=== PATIENT | male | born 1970 | race Caucasian/White ===

== ENCOUNTER 2025-09-06 11:09 | Inpatient (IN) ==
[2025-09-06 11:50] LABS: Basophils # (Auto) 0.01 K/mcL (0.00-0.30); Basophils % (Auto) 0.1 % (0.0-2.0); Eosinophils # (Auto) 0.03 K/mcL (0.00-0.70); Eosinophils % (Auto) 0.4 % (0.0-7.0); Hematocrit 47.0 % (40.1-51.0); Hemoglobin 15.4 g/dL (13.7-17.5); Lymphocytes # (Auto) 1.11 K/mcL (1.50-4.80); Lymphocytes % (Auto) 13.5 % (15.5-49.0); Mean Corpuscular HGB Conc 32.8 g/dL (31.0-36.0); Monocytes # (Auto) 0.92 K/mcL (0.10-0.90); Monocytes % (Auto) 11.2 % (1.0-12.0); Neutrophils % (Auto) 74.8 % (38.0-78.0); Platelet Count 266 K/mcL (140-440); RBC 5.09 M/mcL (4.63-6.08); WBC 8.2 K/mcL (4.5-11.0)
[2025-09-06 12:08] LABS: ALT/SGPT 37 U/L (<40); AST/SGOT 32 U/L (<40); Albumin 3.8 gm/dL (3.2-5.2); Albumin/Globulin Ratio 1.1 (1.0-2.3); Alkaline Phosphatase 72 U/L (39-117); Anion Gap 6.0 (8.0-16.0); Bilirubin,Total 0.4 mg/dL (0.1-1.0); Blood Urea Nitrogen 16 mg/dL (6-20); Calcium 9.0 mg/dL (8.6-10.4); Carbon Dioxide 28 mmol/L (22-30); Chloride 103 mmol/L (96-108); Globulin 3.4 gm/dL (2.2-3.7); Glucose 118 mg/dL (70-105); Potassium 4.8 mmol/L (3.3-5.1); Sodium 137 mmol/L (133-145)
[2025-09-06] MEDS: KETOROLAC 30 MG/ML VIAL IV ONE (13:11)
[2025-09-06] MEDS: PIPERACILLIN SODIUM/TAZOBACTAM 3.375 GM in DEXTROSE 5% IN WATER 50 ML IV ONE (13:26)
[2025-09-06 13:49] LABS: INR 1.0 (0.9-1.1); Prothrombin Time 14.2 sec (11.9-14.5)
[2025-09-06] MEDS: 0.9 % SODIUM CHLORIDE 1,000 ML IV ONE (14:00)
[2025-09-06] MEDS ORDERED: ROCURONIUM 10 MG/ML ML IV ONE (14:01)
[2025-09-06] MEDS ORDERED: PROPOFOL 200 MG/20 ML VIAL IV ONE (14:01)
[2025-09-06] MEDS ORDERED: SUCCINYLCHOLINE 200 MG/10 ML VIAL IV ONE (14:01)
[2025-09-06] MEDS ORDERED: BUPIVACAINE PF 0.5% 10 ML VIAL ONE (14:01)
[2025-09-06] MEDS ORDERED: BUPIVACAINE LIPOSOMAL 1.3% 10 ML VIAL IJ ONE (14:01)
[2025-09-06] MEDS ORDERED: MIDAZOLAM 2 MG/2 ML VIAL ONE (14:01)
[2025-09-06] MEDS ORDERED: ONDANSETRON 4 MG/2 ML VIAL ONE (14:02)
[2025-09-06] MEDS ORDERED: LIDOCAINE 2% PF 5 ML VIAL ONE (14:02)
[2025-09-06] MEDS ORDERED: GLYCOPYRROLATE 0.2 MG/ML VIAL IV ONE (14:02)
[2025-09-06] MEDS ORDERED: KETOROLAC 30 MG/ML VIAL ONE (14:02)
[2025-09-06] MEDS ORDERED: DEXAMETHASONE 10 MG/ML VIAL ONE (14:02)
[2025-09-06] MEDS ORDERED: TRANEXAMIC ACID 1,000 MG/10 ML VIAL ONE (14:02)
[2025-09-06] MEDS ORDERED: HYDROmorphone 0.5 MG/0.5 ML SYRINGE ONE (15:39)
[2025-09-06] MEDS ORDERED: fentaNYL 100 MCG/2 ML VIAL ONE (15:45)
[2025-09-06] MEDS ORDERED: LABETALOL HCL 20 MG/4 ML VIAL IV ONE (15:53)
[2025-09-06] MEDS ORDERED: SUGAMMADEX SODIUM 200 MG/2 ML VIAL IV ONE (16:11)
[2025-09-06] MEDS ORDERED: LACTATED RINGERS 250 ML IV PRN (16:13)
[2025-09-06] MEDS ORDERED: NALOXONE HCL 0.4 MG/ML VIAL IV PRN (16:13)
[2025-09-06] MEDS ORDERED: ONDANSETRON 4 MG/2 ML VIAL IV PRN ×2 (16:13→18:13)
[2025-09-06] MEDS ORDERED: IPRATROPIUM/ALBUTEROL 3 ML AMPUL.NEB NEB PRN (16:13)
[2025-09-06] MEDS ORDERED: HYDROmorphone 0.5 MG/0.5 ML SYRINGE IV PRN (16:13)
[2025-09-06] MEDS ORDERED: BENZOCAINE/MENTHOL 1 LOZENGE PO PRN (16:13)
[2025-09-06] MEDS: ACETAMINOPHEN 1,000 MG/100 ML BAG IV ONE (17:01)
[2025-09-06] MEDS: fentaNYL 100 MCG/2 ML VIAL IV PRN (17:31)
[2025-09-06] MEDS: METHOCARBAMOL 1,000 MG/10 ML VIAL IV PRN (17:32)
[2025-09-06] MEDS: 0.9 % SODIUM CHLORIDE 1,000 ML IV SCH (20:25)
[2025-09-06] MEDS: PIPERACILLIN SODIUM/TAZOBACTAM 3.375 GM in DEXTROSE 5% IN WATER 100 ML IV SCH (20:26)
[2025-09-06] MEDS: METOCLOPRAMIDE 10 MG/2 ML VIAL IV SCH (20:42)
[2025-09-06] MEDS: PYRIDOSTIGMINE BROMIDE 10 MG/2 ML AMPUL IV SCH (21:24)
[2025-09-06] MEDS: HYDROmorphone 0.5 MG/0.5 ML SYRINGE IV PRN (22:58)
[2025-09-07] MEDS: ACETAMINOPHEN 1,000 MG/100 ML BAG IV SCH (01:15)
[2025-09-07] MEDS: METHOCARBAMOL 1,000 MG/10 ML VIAL IV PRN (01:55)
[2025-09-07 08:53] LABS: Basophils # (Auto) 0 K/mcL (0.00-0.30); Basophils % (Auto) 0 % (0.0-2.0); Eosinophils # (Auto) 0 K/mcL (0.00-0.70); Eosinophils % (Auto) 0 % (0.0-7.0); Hematocrit 41.0 % (40.1-51.0); Hemoglobin 13.1 g/dL (13.7-17.5); Lymphocytes # (Auto) 1.15 K/mcL (1.50-4.80); Lymphocytes % (Auto) 10.7 % (15.5-49.0); Mean Corpuscular HGB Conc 32.0 g/dL (31.0-36.0); Monocytes # (Auto) 0.80 K/mcL (0.10-0.90); Monocytes % (Auto) 7.5 % (1.0-12.0); Neutrophils % (Auto) 81.7 % (38.0-78.0); Platelet Count 264 K/mcL (140-440); RBC 4.29 M/mcL (4.63-6.08); WBC 10.7 K/mcL (4.5-11.0)
[2025-09-07 09:13] LABS: ALT/SGPT 31 U/L (<40); AST/SGOT 29 U/L (<40); Albumin 3.1 gm/dL (3.2-5.2); Albumin/Globulin Ratio 1.1 (1.0-2.3); Alkaline Phosphatase 54 U/L (39-117); Anion Gap 7.0 (8.0-16.0); Bilirubin,Direct 0.2 mg/dL (<0.3); Bilirubin,Total 0.4 mg/dL (0.1-1.0); Blood Urea Nitrogen 20 mg/dL (6-20); Calcium 7.7 mg/dL (8.6-10.4); Carbon Dioxide 22 mmol/L (22-30); Chloride 104 mmol/L (96-108); Globulin 2.9 gm/dL (2.2-3.7); Glucose 125 mg/dL (70-105); Phosphorous 3.2 mg/dL (2.5-4.5); Potassium 5.3 mmol/L (3.3-5.1); Sodium 133 mmol/L (133-145); Triglycerides 80 mg/dL (<150); Uric Acid 4.7 mg/dL (2.5-8.0)
[2025-09-07] MEDS ORDERED: BENZOCAINE/MENTHOL 1 LOZENGE PO PRN (11:39)
[2025-09-07] MEDS: BENZOCAINE ONE 20% 1 SPRAY TOPICAL (12:23)
[2025-09-07 13:18] LABS: Bilirubin,Urine NEGATIVE (Negative); Color,Urine LT. YELLOW; Glucose,Urine (UA) NEGATIVE (Negative); Ketones,Urine NEGATIVE (Negative); Leukocyte Esterase,Urine NEGATIVE /uL (Negative); PH,Urine 6.0 (5.0-9.0); Protein,Urine NEGATIVE (Negative); Specific Gravity,Urine 1.020 (1.000-1.035); Urobilinogen,Urine 0.2 mg/dL
[2025-09-07] MEDS: LACTATED RINGERS 1,000 ML IV SCH (16:29)
[2025-09-07] MEDS: PANTOPRAZOLE 40 MG VIAL IV SCH (17:10)
[2025-09-08 06:18] LABS: Basophils # (Auto) 0.01 K/mcL (0.00-0.30); Basophils % (Auto) 0.1 % (0.0-2.0); Eosinophils # (Auto) 0.07 K/mcL (0.00-0.70); Eosinophils % (Auto) 0.9 % (0.0-7.0); Hematocrit 42.1 % (40.1-51.0); Hemoglobin 13.4 g/dL (13.7-17.5); Lymphocytes # (Auto) 1.62 K/mcL (1.50-4.80); Lymphocytes % (Auto) 21.2 % (15.5-49.0); Mean Corpuscular HGB Conc 31.8 g/dL (31.0-36.0); Monocytes # (Auto) 0.71 K/mcL (0.10-0.90); Monocytes % (Auto) 9.3 % (1.0-12.0); Neutrophils % (Auto) 68.5 % (38.0-78.0); Platelet Count 266 K/mcL (140-440); RBC 4.40 M/mcL (4.63-6.08); WBC 7.6 K/mcL (4.5-11.0)
[2025-09-08 06:39] LABS: ALT/SGPT 26 U/L (<40); AST/SGOT 36 U/L (<40); Albumin 3.1 gm/dL (3.2-5.2); Albumin/Globulin Ratio 1.0 (1.0-2.3); Alkaline Phosphatase 52 U/L (39-117); Anion Gap 7.0 (8.0-16.0); Bilirubin,Direct < 0.2 mg/dL (0-0.3); Bilirubin,Total 0.3 mg/dL (0.1-1.0); Blood Urea Nitrogen 17 mg/dL (6-20); Calcium 8.1 mg/dL (8.6-10.4); Carbon Dioxide 25 mmol/L (22-30); Chloride 106 mmol/L (96-108); Globulin 3.1 gm/dL (2.2-3.7); Glucose 93 mg/dL (70-105); Phosphorous 2.2 mg/dL (2.5-4.5); Potassium 4.3 mmol/L (3.3-5.1); Sodium 138 mmol/L (133-145); Triglycerides 148 mg/dL (<150); Uric Acid 4.3 mg/dL (2.5-8.0)
[2025-09-08] MEDS: POTASSIUM PHOSPHATE 40 MEQ in DEXTROSE 5% IN WATER 500 ML IV ONE (15:07)
[2025-09-08] MEDS: POLYETHYLENE GLYCOL 3350 17 GM PACKET PO SCH (15:07)
[2025-09-08] MEDS: MAGNESIUM HYDROXIDE 30 ML ORAL.SUSP PO SCH (16:11)
[2025-09-09] MEDS: POLYETHYLENE GLYCOL 3350 17 GM PACKET ONE (05:50)
[2025-09-09] MEDS: POLYETHYLENE GLYCOL 3350 17 GM PACKET PO SCH ×2 (07:12→12:36)
[2025-09-09 08:30] LABS: ALT/SGPT 25 U/L (<40); AST/SGOT 43 U/L (<40); Albumin 3.2 gm/dL (3.2-5.2); Albumin/Globulin Ratio 1.0 (1.0-2.3); Alkaline Phosphatase 52 U/L (39-117); Anion Gap 10.0 (8.0-16.0); Bilirubin,Direct < 0.2 mg/dL (0-0.3); Bilirubin,Total 0.3 mg/dL (0.1-1.0); Blood Urea Nitrogen 12 mg/dL (6-20); Calcium 8.4 mg/dL (8.6-10.4); Carbon Dioxide 23 mmol/L (22-30); Chloride 105 mmol/L (96-108); Globulin 3.1 gm/dL (2.2-3.7); Glucose 120 mg/dL (70-105); Phosphorous 2.2 mg/dL (2.5-4.5); Potassium 4.0 mmol/L (3.3-5.1); Sodium 138 mmol/L (133-145); Triglycerides 133 mg/dL (<150); Uric Acid 3.9 mg/dL (2.5-8.0)
[2025-09-09 09:08] LABS: Basophils # (Auto) 0.02 K/mcL (0.00-0.30); Basophils % (Auto) 0.3 % (0.0-2.0); Eosinophils # (Auto) 0.06 K/mcL (0.00-0.70); Eosinophils % (Auto) 0.8 % (0.0-7.0); Hematocrit 41.2 % (40.1-51.0); Hemoglobin 13.3 g/dL (13.7-17.5); Lymphocytes # (Auto) 1.42 K/mcL (1.50-4.80); Lymphocytes % (Auto) 18.5 % (15.5-49.0); Mean Corpuscular HGB Conc 32.3 g/dL (31.0-36.0); Monocytes # (Auto) 0.71 K/mcL (0.10-0.90); Monocytes % (Auto) 9.3 % (1.0-12.0); Neutrophils % (Auto) 71.0 % (38.0-78.0); Platelet Count 280 K/mcL (140-440); RBC 4.37 M/mcL (4.63-6.08); WBC 7.7 K/mcL (4.5-11.0)
[2025-09-09] MEDS: MAGNESIUM HYDROXIDE 30 ML ORAL.SUSP PO SCH (12:36)
[2025-09-09] MEDS: POTASSIUM PHOSPHATE 40 MEQ in DEXTROSE 5% IN WATER 500 ML IV SCH (15:05)
[2025-09-10 07:58] LABS: ALT/SGPT 57 U/L (<40); AST/SGOT 70 U/L (<40); Albumin 3.6 gm/dL (3.2-5.2); Albumin/Globulin Ratio 1.0 (1.0-2.3); Alkaline Phosphatase 62 U/L (39-117); Anion Gap 12.0 (8.0-16.0); Basophils # (Auto) 0.01 K/mcL (0.00-0.30); Basophils % (Auto) 0.1 % (0.0-2.0); Bilirubin,Direct < 0.2 mg/dL (0-0.3); Bilirubin,Total 0.3 mg/dL (0.1-1.0); Blood Urea Nitrogen 8 mg/dL (6-20); Calcium 9.0 mg/dL (8.6-10.4); Carbon Dioxide 25 mmol/L (22-30); Chloride 105 mmol/L (96-108); Eosinophils # (Auto) 0.09 K/mcL (0.00-0.70); Eosinophils % (Auto) 1.0 % (0.0-7.0); Globulin 3.5 gm/dL (2.2-3.7); Glucose 109 mg/dL (70-105); Hematocrit 45.0 % (40.1-51.0); Hemoglobin 14.7 g/dL (13.7-17.5); Lymphocytes # (Auto) 1.37 K/mcL (1.50-4.80); Lymphocytes % (Auto) 15.7 % (15.5-49.0); Mean Corpuscular HGB Conc 32.7 g/dL (31.0-36.0); Monocytes # (Auto) 0.83 K/mcL (0.10-0.90); Monocytes % (Auto) 9.5 % (1.0-12.0); Neutrophils % (Auto) 73.6 % (38.0-78.0); Phosphorous 3.2 mg/dL (2.5-4.5); Platelet Count 298 K/mcL (140-440); Potassium 4.1 mmol/L (3.3-5.1); RBC 4.83 M/mcL (4.63-6.08); Sodium 142 mmol/L (133-145); Triglycerides 187 mg/dL (<150); Uric Acid 3.8 mg/dL (2.5-8.0); WBC 8.7 K/mcL (4.5-11.0)
[2025-09-10 07:59] LABS: C-Reactive Protein 4.97 mg/dL (0.03-0.80)
[2025-09-10] MEDS ORDERED: IOPAMIDOL 100 ML BOTTLE IV ONE (08:55)
[2025-09-10] MEDS: hydrALAZINE 20 MG/ML VIAL IV ONE (17:13)
[2025-09-10] MEDS: 0.9 % SODIUM CHLORIDE 1,000 ML IV SCH (17:14)
[2025-09-12 06:50] LABS: Basophils # (Auto) 0.02 K/mcL (0.00-0.30); Basophils % (Auto) 0.2 % (0.0-2.0); Eosinophils # (Auto) 0.16 K/mcL (0.00-0.70); Eosinophils % (Auto) 1.8 % (0.0-7.0); Hematocrit 45.9 % (40.1-51.0); Hemoglobin 15.0 g/dL (13.7-17.5); Lymphocytes # (Auto) 1.69 K/mcL (1.50-4.80); Lymphocytes % (Auto) 19.3 % (15.5-49.0); Mean Corpuscular HGB Conc 32.7 g/dL (31.0-36.0); Monocytes # (Auto) 0.77 K/mcL (0.10-0.90); Monocytes % (Auto) 8.8 % (1.0-12.0); Neutrophils % (Auto) 69.7 % (38.0-78.0); Platelet Count 305 K/mcL (140-440); RBC 4.98 M/mcL (4.63-6.08); WBC 8.8 K/mcL (4.5-11.0)
[2025-09-12 07:13] LABS: ALT/SGPT 60 U/L (<40); AST/SGOT 40 U/L (<40); Albumin 3.4 gm/dL (3.2-5.2); Albumin/Globulin Ratio 1.1 (1.0-2.3); Alkaline Phosphatase 63 U/L (39-117); Anion Gap 10.0 (8.0-16.0); Bilirubin,Direct 0.3 mg/dL (<0.3); Bilirubin,Total 0.5 mg/dL (0.1-1.0); Blood Urea Nitrogen 10 mg/dL (6-20); Calcium 8.8 mg/dL (8.6-10.4); Carbon Dioxide 23 mmol/L (22-30); Chloride 105 mmol/L (96-108); Globulin 3.1 gm/dL (2.2-3.7); Glucose 103 mg/dL (70-105); Phosphorous 2.5 mg/dL (2.5-4.5); Potassium 4.2 mmol/L (3.3-5.1); Sodium 138 mmol/L (133-145); Triglycerides 173 mg/dL (<150); Uric Acid 4.3 mg/dL (2.5-8.0)
== END 2025-09-12 18:05 | disposition home or self-care (01) | DRG 337 ==
LOC: ED 11:09 → SUR 14:09 → MEDSUR 17:58
PROVIDERS: ADMIT Family Medicine Adult Medicine; ATTEND Family Medicine Adult Medicine